=== PATIENT | female | born 1980 | race Two or more races ===

== ENCOUNTER 2017-04-19 11:11 | Day surgery (SDC) | payer MEDICAID, OTHER ==
[~2017-04-19 11:11] MED LIST: Dextrose 5%-Lactated Ringers 1,000 ML IV SCH; Glycopyrrolate 0.2 MG/ML 2 ML SYRINGE IVPUSH ONE
[2017-04-19] MEDS ORDERED: Glycopyrrolate 0.2 MG/ML 2 ML SYRINGE IVPUSH ONE (11:45)
[2017-04-19] MEDS ORDERED: Propofol 200 MG/20 ML SDV ONE ×2 (12:08→12:34)
[2017-04-19] MEDS ORDERED: Midazolam 1 MG/ML 2 ML SDV ONE (12:08)
[2017-04-19] MEDS ORDERED: fentaNYL 100 MCG/2 ML SDV ONE (12:08)
--- NOTE | 2017-04-21 09:19 | OR ---
DATE OF PROCEDURE: 04/19/2017 PREOPERATIVE DIAGNOSIS: Weight regain, status post gastric bypass. POSTOPERATIVE DIAGNOSIS: Weight regain, status post gastric bypass associated with gastrogastric fistula. OPERATIVE PROCEDURE: Upper gastrointestinal endoscopy with biopsies of gastric pouch for CLOtest. ANESTHESIA: IV sedation. INDICATION FOR PROCEDURE: The patient is status post Aimee-en-Y gastric bypass with previously good result. She has had significant weight regain, and plan is to proceed with an upper GI endoscopy with biopsies as indicated. Potential risks including bleeding and perforation were discussed, and the patient wishes to proceed. DETAILS OF PROCEDURE: The patient was taken to the operating room and placed in a left lateral decubitus position. IV sedation was administered, after which the upper GI endoscope was passed orally through the length of the esophagus and into the gastric pouch. The patient was noted to have a fistula between the gastric pouch and the adjacent stomach. The scope could easily be passed through that area. Visualized portion of the bypassed stomach and duodenum were otherwise unremarkable. At that point, scope was pulled back up into the gastric pouch, and the gastrojejunostomy was otherwise noted to be intact. The pouch was relatively normal-sized, around 3 to 4 cm. Biopsies were obtained from the gastric pouch and sent for the CLOtest for H. pylori. Minimal bleeding from the biopsy sites was seen, and the procedure was then concluded. The patient was taken to the recovery room in satisfactory condition. Plan will be to address the patient's insurance company regarding prior authorization for revision of the gastric pouch component of the Aimee-en-Y gastric bypass. Vladimir Mueller MD /[id number]
== END 2017-04-19 14:21 | disposition home or self-care (01) ==
LOC: JP.SDS 11:11
PROVIDERS: ATTEND Surgery
DX: K31.6 Fistula of stomach and duodenum (principal); Z98.84 Bariatric surgery status
CPT/HCPCS: 43239; 81025; 87081; J2250; J2704; J3010; J7042

== ENCOUNTER 2017-05-24 09:00 | Inpatient (IN) | payer MEDICAID ==
[~2017-05-24 09:00] MED LIST changes: +Acetaminophen 500 MG Tab PO ONE; +Celecoxib 200 MG Cap PO ONE; +Dexamethasone 4 MG/ML SDV ONE; +Gabapentin 300 MG Cap PO ONE; -Glycopyrrolate 0.2 MG/ML 2 ML SYRINGE IVPUSH ONE; +Glycopyrrolate 0.2 MG/ML 5 ML MDV ONE; +Neostigmine Methylsulfate 1 MG/ML 5 ML Syringe ONE; +Ondansetron 4 MG/2 ML SDV ONE; +Propofol 200 MG/20 ML SDV ONE; +Rocuronium 50 MG/5 ML Vial ONE; +Scopolamine 1.5 MG Transdermal Patch TOP SCH; +Succinylcholine 200 MG/10 ML MDV ONE; +cefOXitin 2 GM Vial ONE; +cefOXitin 2 GM in Sodium Chloride 0.9% 50 ML IV ONE; +fentaNYL 250 MCG/5 ML SDV ONE
[2017-05-24] MEDS ORDERED: Lidocaine 2% 100 MG/5 ML Syringe IVPUSH ONE (10:00)
[2017-05-24] MEDS ORDERED: Ketamine 500 MG/5 ML MDV IV SCH (10:00)
[2017-05-24] MEDS ORDERED: Ropivacaine 60 ML, Dexamethasone 8 MG, EPINEPHrine 0.4 MG, Sodium Chloride 0.9% 17.6 ML NERVRT SCH ×4 (10:00)
[2017-05-24] MEDS ORDERED: fentaNYL 250 MCG/5 ML SDV ONE ×2 (12:21→12:54)
[2017-05-24] MEDS ORDERED: fentaNYL 100 MCG/2 ML SDV IVPUSH ONE (14:40)
[2017-05-24] MEDS ORDERED: hydrOXYzine HCl 100 MG/2 ML SDV IM ONE (14:40)
[2017-05-24] MEDS ORDERED: Metoclopramide 10 MG/2 ML SDV IVPUSH PRN (16:00)
[2017-05-24] MEDS ORDERED: Ondansetron 4 MG/2 ML SDV IVPUSH PRN (16:00)
[2017-05-24] MEDS ORDERED: diphenhydrAMINE 50 MG/ML SDV IVPUSH PRN (16:00)
[2017-05-24] MEDS ORDERED: Labetalol 20 MG/4 ML Syringe IVPUSH PRN (16:00)
[2017-05-24] MEDS: cefOXitin 2 GM in Sodium Chloride 0.9% 50 ML IV SCH ×2 (16:33→23:06)
[2017-05-24] MEDS: Acetaminophen Soln 650 MG/20.3 ML UD Cup PO SCH ×2 (16:33→21:18)
[2017-05-24] MEDS: Pantoprazole 40 MG Vial IVPUSH SCH (16:33)
[2017-05-24] MEDS: Lidocaine 0.4%/D5W 2 GM/500 ML BAG IV SCH (16:33)
[2017-05-24] MEDS ORDERED: MVI, Adult with Vitamin K 10 ML, Thiamine 100 MG, Chromium/Copper/Mang/Selen/Zn 1 ML in... IV SCH ×4 (17:00)
[2017-05-24] MEDS: Heparin Sodium 5,000 Units/ML Vial SUBCUT SCH (18:12)
[2017-05-24] MEDS: hydrOXYzine HCl 100 MG/2 ML SDV IM PRN (19:50)
[2017-05-24] MEDS: Gabapentin 250 MG/5 ML Solution ML 470 ML Bottle PO SCH (21:00)
[2017-05-25] MEDS: Dextrose 5%-Lactated Ringers 1,000 ML IV SCH ×2 (00:14→06:45)
[2017-05-25] MEDS: Lidocaine 0.4%/D5W 2 GM/500 ML BAG IV SCH (03:45)
[2017-05-25] MEDS: Acetaminophen Soln 650 MG/20.3 ML UD Cup PO SCH ×4 (04:00→21:13)
[2017-05-25] MEDS: cefOXitin 2 GM in Sodium Chloride 0.9% 50 ML IV SCH ×2 (05:00→13:55)
[2017-05-25] MEDS: Heparin Sodium 5,000 Units/ML Vial SUBCUT SCH ×2 (06:00→17:05)
--- NOTE | 2017-05-25 08:49 | CR ---
Contrast within the gastric pouch and proximal small bowel loops. No definitive dilatation.
[2017-05-25] MEDS: Gabapentin 250 MG/5 ML Solution ML 470 ML Bottle PO SCH ×3 (08:50→21:13)
[2017-05-25] MEDS: Celecoxib 200 MG Cap PO SCH (08:50)
[2017-05-25] MEDS ORDERED: Iohexol 647 MG/ML 50 ML SDV PO PRN (09:59)
[2017-05-25] MEDS ORDERED: Dextrose 5%-Lactated Ringers 1,000 ML IV SCH (10:00)
[2017-05-25] MEDS: SCOPOLAMINE PATCH CHECK TOP SCH (11:15)
[2017-05-25] MEDS: Sodium Ferric Gluconate Cmplex 250 MG in Sodium Chloride 0.9% 100 ML IV SCH (11:25)
[2017-05-25] MEDS: hydrOXYzine HCl 100 MG/2 ML SDV IM PRN (15:33)
[2017-05-25] MEDS ORDERED: MVI, Adult with Vitamin K 10 ML, Thiamine 100 MG, Chromium/Copper/Mang/Selen/Zn 1 ML in... IV SCH ×4 (16:00)
[2017-05-25] MEDS: Pantoprazole 40 MG Vial IVPUSH SCH (17:07)
[2017-05-25] MEDS: HYDROmorphone 2 MG Tab PO PRN (21:13)
[2017-05-26] MEDS: HYDROmorphone 2 MG Tab PO PRN ×2 (04:15→09:08)
[2017-05-26] MEDS: Acetaminophen Soln 650 MG/20.3 ML UD Cup PO SCH ×2 (04:15→09:10)
[2017-05-26] MEDS: Heparin Sodium 5,000 Units/ML Vial SUBCUT SCH (05:19)
[2017-05-26] MEDS ORDERED: Cyanocobalamin (Vitamin B12) 1,000 MCG/ML SDV IM ONE (09:00)
[2017-05-26] MEDS: Gabapentin 250 MG/5 ML Solution ML 470 ML Bottle PO SCH (09:08)
[2017-05-26] MEDS: Celecoxib 200 MG Cap PO SCH (09:09)
[2017-05-26] MEDS: SCOPOLAMINE PATCH CHECK TOP SCH (09:23)
--- NOTE | 2017-05-26 10:41 | DISCH ---
ADMISSION DIAGNOSES: Morbid obesity, BMI 45.7; weight gain following gastric bypass surgery; SP Aimee-en-Y gastric bypass surgery, unspecified surgical malabsorption; B12 deficiency; iron-deficiency anemia; history of tobacco use, recently quit; depression; primary insomnia. DISCHARGE DIAGNOSES: Diagnostic laparoscopy with lysis of adhesions with revision of Aimee- en-Y gastric bypass surgery with division of gastrogastric fistula, revision of the jejunostomy with small bowel resection and placement of Interceed mesh for weight regain, SP Aimee-en-Y gastric bypass surgery associated with gastrogastric fistula, devascularized segment of the small bowel secondary to takedown of adhesions adjacent to the Aimee limb, and extensive intraabdominal adhesions. Date of surgery, 05/24/2017. Surgeon, Vladimir Mueller MD. HISTORY: Jose Kohler is a 37-year-old female with significant weight regain after Aimee-en- Y gastric bypass surgery with increasing comorbidities. After preoperative evaluation and discussion of possible risks and possible complications, she wished to proceed with surgical procedure. HOSPITAL COURSE: Jose had her surgery on 05/24/2017. She had no complications. On postop day #1, she was started on step-2 gastric bypass diet without cereal and tolerated that well. She had dietary instruction. Her activity was good. Pain was well managed and vital signs stable. She was able to be discharged to home on postop day #2. PHYSICAL EXAMINATION: GENERAL: Jose is a 37-year-old female. VITAL SIGNS: Height is 5 feet 7 inches. Weight is 291, BMI 45.7. TPR 97.2, 75, 18. Blood pressure 121/62. HEENT: Negative. NECK: Supple. HEART: Regular rate and rhythm. LUNGS: Clear. ABDOMEN: Incisions good. Abdominal binder is on. EXTREMITIES: Without peripheral edema. DISPOSITION: Discharged to home. CONDITION: Stable and improving. FOLLOWUP APPOINTMENT: With Marcia Parish PA-C on 06/03/2017 at 10:00 a.m. NEW PRESCRIPTIONS: 1. Tylenol 650 mg oral q.6 hours, chewable or liquid, scheduled for 2 weeks. 2. Celebrex 200 mg p.o. daily, #14. HOME MEDICATIONS: She is to resume her Chantix. Discontinue taking vitamins and supplements until first postop appointment. DISCHARGE DIET: Step 2 gastric bypass diet without cereal, drink 8 to 10 glasses of water a day. ACTIVITY: Walk 6 times daily, distance and time as tolerated. DRIVING AFTER DISCHARGE: Do not drive for 1 week. SHOWER/BATHING: May shower. DISCHARGE INSTRUCTIONS: Notify provider if any fever, increased pain, nausea, or vomiting. Keep site clean and dry. Wear abdominal binder for 2 weeks and then as tolerated. SPECIAL INSTRUCTION: Use incentive spirometer 10 times every hour while awake for 1 week and keep a journal of protein and liquid intake and bring to clinic appointments.
[2017-05-26] MEDS: Sodium Ferric Gluconate Cmplex 250 MG in Sodium Chloride 0.9% 100 ML IV SCH (11:11)
--- NOTE | 2017-05-26 17:20 | PN ---
DATE OF SERVICE: 05/25/2017 The patient is status post revision of Aimee-en-Y gastric bypass yesterday and has done well postoperatively. Pain control appears to be adequate with the oral regimen, upper GI x-ray looks good. The plan will be to back down on the IV rate. We will give her a step-3 diet today. She will be getting the first of 2 iron infusions today and will likely be ready for discharge home after that second infusion is completed tomorrow. Vladimir Mueller MD /[id number]
--- NOTE | 2017-05-27 08:38 | OR ---
DATE OF PROCEDURE: 05/24/2017 PREOPERATIVE DIAGNOSIS: Weight regain status post Aimee-en-Y gastric bypass associated with gastrogastric fistula. POSTOPERATIVE DIAGNOSES: 1. Weight regain status post Aimee-en-Y gastric bypass associated with gastrogastric fistula. 2. Devascularized segment of small bowel secondary to takedown of adhesions adjacent to Aimee limb. 3. Extensive intra-abdominal adhesions. OPERATIVE PROCEDURES: Diagnostic laparoscopy with lysis of adhesions with: 1. Revision of Aimee-en-Y gastric bypass with: a. Division of gastrogastric fistula. b. Revision of jejunojejunostomy (50410). 2. Small bowel resection (41760). 3. Placement of Interceed mesh to displace pelvic and abdominal wall from underlying viscera to limit recurrent adhesion formation (19179). ANESTHESIA: General. TIRE WORKER: Marcia Parish PA-C. INDICATION FOR PROCEDURE: This 37-year-old is status post Aimee-en-Y gastric bypass. Originally, she had a quite good result, but in the recent years, after and more recently after developing gastrogastric fistula, she has had significant weight regain. Plan is to proceed with a revision of the Aimee-en-Y gastric bypass by means of both division of the gastric fistula and rerouting the Aimee limb to increase the amount of malabsorption. The potential risks of the procedure including bleeding, infection, leaks from the GI tract closures, and possible bowel obstruction over time were reviewed. Additionally, the patient is aware that she will likely have some more frequent loose bowel movements and would have to maintain a little bit more vigilance in terms of her nutritional status, and she wishes to proceed. DETAILS OF PROCEDURE: The patient was taken to the operating room and placed in a supine position. After general endotracheal anesthesia was induced, she was converted to a lithotomy position, and the abdomen was prepped and draped. At 15 cm inferior and 5 cm left of xiphoid process, a transverse incision was made and the peritoneal cavity entered under direct vision with an Optiview trocar and inflated to 15 mmHg pressure with CO2. Laparoscope was then reinserted. No underlying trocar insertion site injuries were seen. Following this, bilateral subcostal transversus abdominis plane blocks were placed with direct visualization of the needle in the correct location and standard injectate placed bilaterally. Following this, eventually, 5 additional trocars were placed across the upper and mid-abdomen. Initially, the patient was noted to have quite a bit in the way of adhesions, both between the small bowel and the pelvic and abdominal wall, as well as some omental adhesions to those areas as well. These were taken down with a combination of blunt and sharp dissections. At this point, attention was taken to the gastric portion of the gastric bypass. As one began to dissect along the blind end of the Aimee limb, this brought up to the edge of the stomach and allowed continued dissection for the plane between the gastric pouch and the remainder of the stomach. Once this was encircled, this was then divided with a combination of purple and black loads. The Davis tube had been placed orally and placed across the gastric pouch and from there into the main route of the Aimee limb, so as to avoid overtightening of the gastric pouch. During the course of this dissection, the small bowel involving the blind end of the Aimee limb became devascularized, and this was therefore resected as an additional procedure with LUIS E keith load after division of remainder of its mesentery. At this point, attention was taken to the small bowel. The patient was noted to have a Aimee limb at this point measuring 80 cm. This was divided flush with the jejunojejunostomy. At that point, then the ileocecal valve was encountered and tracked back 220 cm, giving the patient a total alimentary length of 300 cm. At that point, the [id number] enteroenterostomy was accomplished between the end of the Aimee limb and that point 220 cm proximal to the ileocecal valve. This was done with an internal firing of the LUIS E keith load, and the purple load was used to closed the common opening, angles anastomosed, and mesenteric defect was then approximated with some 3-0 Vicryl stitch, along with fibrin sealant. At this point, to limit recurrent adhesion formation, Interceed mesh was placed across the lower abdomen and pelvis, thus providing some separation between the underlying viscera, particularly the most recent small bowel anastomosis. At that point, the trocars were then sequentially removed and the peritoneal cavity deflated. Incisions were closed with some 4- 0 Vicryl skin stitch, and the fascia had been closed with #1 Vicryl stitch. The patient was taken to the recovery room in a satisfactory condition. There were no evident complications. Physician assistant county attorney, Marcia Parish, played an essential role in assisting in this case, helping to position the patient, retract structures as needed, as well as suturing and cutting sutures when indicated. Her presence improved patient safety and decreased the operative time. Vladimir Meuller MD /[id number]
== END 2017-05-26 11:58 | disposition home or self-care (01) | DRG 629 ==
LOC: EDSTATUS 09:00 → JP.MS 09:16 → JP.SDS 09:16 → JP.2SS 14:25
PROVIDERS: ADMIT Surgery; ATTEND Surgery
PROC: 0D1 Gastrointestinal System, Bypass (ICD-10-PCS; principal; 2017-05-24)
PROC: 0DNU4ZZ Release Omentum, Percutaneous Endoscopic Approach (ICD-10-PCS; 2017-05-24)
PROC: 0DN84ZZ Release Small Intestine, Percutaneous Endoscopic Approach (ICD-10-PCS; 2017-05-24)
PROC: 0DNW4ZZ Release Peritoneum, Percutaneous Endoscopic Approach (ICD-10-PCS; 2017-05-24)
PROC: 0DBA4ZX Excision of Jejunum, Percutaneous Endoscopic Approach, Diagnostic (ICD-10-PCS; 2017-05-24)
PROC: 3E0T3BZ Introduction of Anesthetic Agent into Peripheral Nerves and Plexi, Percutaneous Approach (ICD-10-PCS; 2017-05-24)
PROC: 3E0M45Z Introduction of Adhesion Barrier into Peritoneal Cavity, Percutaneous Endoscopic Approach (ICD-10-PCS; 2017-05-24)
DX: E66.01 Morbid (severe) obesity due to excess calories (principal); K91.2 Postsurgical malabsorption, not elsewhere classified; K31.6 Fistula of stomach and duodenum; K66.0 Peritoneal adhesions (postprocedural) (postinfection); Z68.41 Body mass index [BMI] 40.0-44.9, adult; R63.5 Abnormal weight gain; Z98.84 Bariatric surgery status; Z98.0 Intestinal bypass and anastomosis status; E53.9 Vitamin B deficiency, unspecified; D50.9 Iron deficiency anemia, unspecified; Z87.891 Personal history of nicotine dependence; F32.9 Major depressive disorder, single episode, unspecified; E53.8 Deficiency of other specified B group vitamins; F51.01 Primary insomnia
CPT/HCPCS: 36415; 74240; 74240-26; 81025; 82962; 86850; 86900; 86901; 88305; 88307; A9270-GY; C9113; J0171; J0330; J0694; J1100; J1644; J2001; J2405; J2704; J2710; J2795; J2916; J3010; J3410; J3411; J3420; J7030; J7040; J7042; J7050; Q9967